=== PATIENT | male | born 1950 | race Caucasian/White ===

== ENCOUNTER 2016-11-25 14:22 | Emergency (ER) | payer MEDICARE ==
[~2016-11-25] VITALS: Ht 182.9 cm; Wt 117.7 kg
[~2016-11-25 14:22] MED LIST: AMT50T PO; ASPI-973 PO; LANS30CA PO; LISI2.5T PO; PARO10OR3 PO; SIMV20TA4 PO
[2016-11-25 14:26] VITALS: BP 137/86; PULSE 68; RESP 17; O2SAT 96
[2016-11-25 15:59] LABS: BASOPHILS % (AUTO) 0.2 % (0-3); EOSINOPHILS % (AUTO) 2.8 % (0-5); MONOCYTES % (AUTO) 12.6 % (4-12); Mean Corpuscular Hemoglobin 29.3 pg (27.0-35.0); Mean Corpuscular Volume 85.2 fL (81-100); NEUTROPHILS % (AUTO) 54.7 % (40-74); Platelet Count 267 bil/L (150-400)
--- NOTE | 2016-11-25 16:33 | DRSVH ---
PROCEDURE: X-RAY CHEST ONE VIEW, PORTABLE ([id number]) INDICATIONS: CHEST PAIN TECHNIQUE: One view of the chest was acquired. COMPARISON: [facility], , CHEST 1VW (PORTABLE), 02/13/2011, 20:17. [facility], CR, CHEST 1VW (PORTABLE), 06/18/2009, 6:24. FINDINGS: Surgical changes and devices: None. Lungs and pleura: No pleural effusions or pneumothorax. Lungs are clear. Mediastinum: Mediastinal contours appear normal. Heart size is normal. Bones and chest wall: No suspicious bony lesions. Overlying soft tissues appear unremarkable. IMPRESSION: Normal for age. Source of chest pain is not found. Dictated by: Lino Escamilla M.D. on 11/25/2016 at 16:31 Approved by: Lino Escamilla M.D. on 11/25/2016 at 16:31
--- NOTE | 2016-11-25 16:46 | ED.REPORT ---
HPI-General Illness Date of Service November 25, 2016 ED Provider: Robert Daniels MD The patient is a 66 year old male with history of hypertension, coronary artery disease, and previous neck injury requiring surgery, who presents to the emergency department complaining of dizziness that began 5 days ago. The patient had a dental procedure completed on Thursday and had his head laid backwards in the chair. When he sat up he noticed the dizziness. This has continued to since onset. He was seen by his regular doctor who thought it was vertigo. They tried an Tee maneuver with no relief. He has also noticed neck pain that is worse with head movement, head pressure, and chest tightness. He denies shortness of breath, cough, fever, weakness or numbness. Nursing Notes Stated Complaint: VERTIGO, CHEST TIGHTNESS, NECK PAIN Chief Complaint: Chest Pain Nursing Notes Reviewed: Yes Allergies: Coded Allergies: Sulfa (Sulfonamide Antibiotics) (Verified Allergy, Severe, 05/04/15) Scheduled Amitriptyline (Amitriptyline) 50 Mg Tab 50 MG PO HS Aspirin (Aspirin) 81 Mg Tablet 81 MG PO DAILY Lansoprazole (Lansoprazole) 30 Mg Capsule.dr 30 MG PO DAILY Lisinopril (Lisinopril) 2.5 Mg Tablet 2.5 MG PO BID Meclizine (Bonine) 25 Mg Tab.chew 25 MG PO TID Paroxetine (Paxil) 10 Mg/5 Ml Oral.susp 20 MG PO HS Simvastatin (Simvastatin) 20 Mg Tablet 20 MG PO HS General Time Seen by MD: 16:45 Chief Complaint Dizziness Hx Obtained From: Patient, Spouse Arrived By: Walk-in Sudden in Onset?: Yes Onset Occurred: 6 days ago Symptom Duration: Since onset Location: : Chest (tightness): Head (pressure): Neck Quality: Painful Severity: Current: Mild Severity: Maximum: Moderate Recent Healthcare: No recent hospitalization, Recent doctor visit Similar Sx Previous: No Past Medical History Past Medical History Hx of hernia Hypertension Coronary artery disease s/p stenting Neck injury Throat cancer s/p thyroidectomy Past Surgical History Cardiac stent Thyroidectomy Neck surgery Cholecystectomy with complications requiring additional surgeries Family History Noncontributory Smoking History Former Smoker Social History Other Social History: Good social support, , Local resident Ambulatory Status Independent Review of Systems Full Review of Systems Constitutional: Denies: Fever Respiratory: Denies: Non-productive cough, Prod cough, bloody, Prod cough, brown, Prod cough, clear, Prod cough, green, Prod cough, yellow, Shortness of breath Cardiovascular: Reports: Chest pain (tightness) Musculoskeletal: Reports: Neck pain Neurologic: Reports: Dizziness, Headache (pressure), Denies: Focal weakness, Numbness Complete sys rev & neg: except as marked. Physical Exam Vital Signs Vital Signs Date Time Temp Pulse Resp B/P Pulse Ox O2 Delivery O2 Flow Rate FiO2 11/25/16 19:34 36.7 64 18 143/86 96 Room Air 11/25/16 14:26 36.6 68 17 137/86 96 Room Air Initial VS: Reviewed ENT: Mucous membranes moist, Conjunctiva normal, No scleral icterus Neck: Supple, Non-tender, Full range of motion Respiratory: Breath sounds normal, Clear to auscultation, No respiratory distress Cardiovascular: Regular rate & rhythm, Heart sounds normal, Intact distal pulses Abdomen / GI: Soft, Non-tender, No guarding, No rebound, No distention Lymphatic: No lymphadenopathy Extremities: Vascular intact, Neuro intact, No swelling, No tenderness Skin: Warm, Dry, No cyanosis Psychiatric: Mood/affect normal, Behavior normal, Normal thought content General/Constitutional: Awake, Alert, Cooperative Head / Eyes: Atraumatic, Normocephalic, PERRL, EOMI Neurologic: Oriented X3, Speech NL, No motor deficits, No sensory deficits, CN II - XII intact, Cerebellar NL, Memory NL The dizziness is not reproduced with head movement. Interpretation & Diagnostics Interpretation & Diagnostics: CT Angio of neck with and without contrast: IMPRESSION: 1. No evidence of vertebral artery dissection. 2. Moderate, short segment, stenosis involving the V4 segment of the left vertebral artery. 3. Less than 50% stenosis of the origins of the internal carotid arteries bilaterally. 4. Moderate, short segment, stenosis involving the cavernous segment of the intracranial right internal carotid artery. The estimate of stenosis included in the report of the imaging study was calculated using the NASCET method Dictated by: Shital Dodson MD, PhD on 11/25/2016 at 18:57 Lab Results Interpretation Result Diagram: 11/25/16 1530 11/25/16 1530 Test 11/25/16 15:30 White Blood Count 6.3th/mm3 (3.8-10.1) Red Blood Count 5.15mil/mm3 (4.40-5.80) Hemoglobin 15.1g/dL (13.8-17.2) Hematocrit 43.9% (41.0-50.0) Mean Corpuscular Volume 85.2fL (81-100) Mean Corpuscular Hemoglobin 29.3pg (27.0-35.0) Mean Corpuscular Hemoglobin Concent 34.4% (32.0-37.0) Red Cell Distribution Width 13.9% (12.3-15.4) Platelet Count 267bil/L (150-400) Neutrophils (%) (Auto) 54.7% (40-74) Lymphocytes (%) (Auto) 29.5% (14-46) Monocytes (%) (Auto) 12.6% (4-12) Eosinophils (%) (Auto) 2.8% (0-5) Basophils (%) (Auto) 0.2% (0-3) Sodium Level 138mEq/L (134-144) Potassium Level 4.4mEq/L (3.5-5.2) Chloride Level 98mEq/L (97-108) Carbon Dioxide Level 21mmol/L (18-29) Blood Urea Nitrogen 16mg/dL (8-27) Creatinine 0.89mg/dL (0.76-1.27) Estimat Glomerular Filtration Rate 91mL/min (>59) Glucose Level 106mg/dL (60-99) Calcium Level 9.7mg/dL (8.5-10.1) Magnesium Level 1.9mg/dL (1.6-2.6) Total Bilirubin 0.3mg/dL (0.0-1.2) Aspartate Amino Transf (AST/SGOT) 24U/L (0-50) Alanine Aminotransferase (ALT/SGPT) 38U/L (0-44) Alkaline Phosphatase 106U/L (25-160) Troponin T < 0.010ug/L (0.0-0.011) Total Protein 7.2g/dL (6.4-8.4) Albumin 4.2g/dL (3.4-5.0) Hold [place] Top Tube Received (Received) ECG Interpretation ECG Interpretation: Sinus rhythm with a rate of 63 First degree AV block Time: 14:32 Interpreted by: ED physician X-Ray Chest Interpretation Chest Xray Interpretation: IMPRESSION: Normal for age. Source of chest pain is not found. Dictated by: Lino Escamilla M.D. on 11/25/2016 at 16:31 Interpretation / Wet Read by: Interpret - Radiologist Re-Eval/Medical Decision Source of Hx: Old records, Family Time of Eval: 17:14 Re-Evaluation/Progress Note: Discussed plan for scan. If this is normal he will be discharged home. All questions were addressed. Consultation : Referral / Consult Name: Shital Dodson MD, PhD Call Returned at: 17:24 Note: He recommends ordering a neck CTA. Counseled Regarding: Diagnosis, Lab results, Need for follow-up, When/why to return to ED Discharge & Departure Primary Impression: Dizziness Disposition: Home Discharge Condition All VS Reviewed: Yes Condition: Stable Additional Instructions: Thank you for entrusting us with your care today. Your workup today included a chest x-ray, EKG, and labs. The results are reassuring. There is no evidence of anything acutely dangerous at this time. Use the meclizine as needed for your dizziness. Followup with your regular doctor next week if your symptoms are not improving. Return to the emergency department for any new or concerning symptoms. Referrals: Eb Johnson MD (PCP) Scribe Attestation Portions of this note were transcribed by Celina Squires. Dr. Frances Garland personally performed the history, physical exam and medical decision-making; I reviewed and confirmed the accuracy of the information in the transcribed note. Signed by: Kay Vail, 11/25/2016 at 1800. Portions of this note were transcribed by Sena Mayen. I, (Dr. Daniels) personally performed the history, physical exam and medical decision-making; I reviewed and confirmed the accuracy of the information in the transcribed note. Signed by: Sena Mayen. Kay, 11/26/2016, 1520 copies to: Eb Johnson MD, Kirk H MD November 25, 2016 16:46 Celina Squires November 25, 2016 16:52 Sena Mayen November 26, 2016 15:31
[2016-11-25 16:57] LABS: TROPONIN T < 0.010 ug/L (0.0-0.011)
[2016-11-25 17:05] LABS: Magnesium 1.9 mg/dL (1.6-2.6)
[2016-11-25] MEDS ORDERED: MECL-114 PO (17:36)
--- NOTE | 2016-11-25 19:07 | DRSVH ---
PROCEDURE: CT ANGIOGRAPHY OF THE NECK WITH AND WITHOUT CONTRAST ([id number]) INDICATIONS: neck pressure and vertigo TECHNIQUE: After the administration of intravenous contrast, 1.5 mm axial sections acquired from the aortic arch to the [place]. Coronal 3-D maximum intensity projection (MIP) and/or volume rendering ref ormats were then performed. For radiation dose reduction, the following was used: automated exposur e control. COMPARISON: None. FINDINGS: Image quality: Excellent. Carotid system: The great vessels demonstrate a conventional anatomy as they arise from the aortic a rch. The origins of the common carotid arteries appear patent. The common carotid arteries demonstr ate normal calibers and courses. The bifurcation regions appear normal bilaterally. Atherosclerotic calcifications noted in the origins of the internal carotid arteries bilaterally which causes less th an 50% stenosis of the vessels. Atherosclerotic calcifications noted in the cavernous and supraclino id segments of the right internal carotid artery. Atherosclerotic disease causes moderate, short seg ment stenosis of the cavernous segment of the right internal carotid artery. Posterior circulation: The origins of the vertebral arteries appear patent. The more superior porti ons of the vertebral arteries demonstrate normal course . Atherosclerotic calcifications noted in th e V4 segments of the vertebral arteries bilaterally. Atherosclerotic consultation causes mild to mod erate stenosis of the V4 segment of the left vertebral artery. No measurable stenosis associated wit h the atherosclerosis in the V4 segment of the right vertebral artery. They join to form a normal ap pearing basilar artery. Soft tissues: Visualized neck soft tissues demonstrate no suspicious abnormalities. Thyroid gland i s absent. Bones: Macro spine. Postsurgical changes compatible with C5-C6 ACDF are noted. No suspicious bony lesions. Visualized cervical spine appears normally aligned. IMPRESSION: 1. No evidence of vertebral artery dissection. 2. Moderate, short segment, stenosis involving the V4 segment of the left vertebral artery. 3. Less than 50% stenosis of the origins of the internal carotid arteries bilaterally. 4. Moderate, short segment, stenosis involving the cavernous segment of the intracranial right inter nal carotid artery. The estimate of stenosis included in the report of the imaging study was calculated using the NASCET method Dictated by: Shital Dodson MD, PhD on 11/25/2016 at 18:57 Approved by: Shital Dodson MD, PhD on 11/25/2016 at 19:05
[2016-11-25 19:34] VITALS: BP 143/86; PULSE 64; RESP 18; O2SAT 96
== END 2016-11-25 19:36 | disposition home or self-care (01) ==
LOC: SED 14:22
DX: R42 Dizziness and giddiness (principal); R07.89 Other chest pain; M54.2 Cervicalgia; R51 Headache; I11.9 Hypertensive heart disease without heart failure; I25.10 Atherosclerotic heart disease of native coronary artery without angina pectoris; Z95.5 Presence of coronary angioplasty implant and graft; Z87.891 Personal history of nicotine dependence; Z79.82 Long term (current) use of aspirin; Z88.2 Allergy status to sulfonamides
CPT/HCPCS: 36415; 70498; 71010; 80053; 83735; 84484; 85025; 93005; 99285; Q9967